=== PATIENT | male | born 1995 | race American Indian/Alaskan Native ===

== ENCOUNTER 2024-08-21 05:04 | Day surgery (SDC) | payer OTHER ==
[2024-08-16 14:36] VITALS: BMI 21.4
[2024-08-21] MEDS ORDERED: oxyCODONE HCL 5 MG TABLET PO PRN (10:28)
[2024-08-21] MEDS ORDERED: ONDANSETRON 4 MG/2 ML VIAL IVPUSH PRN (10:28)
[2024-08-21] MEDS ORDERED: LACTATED RINGERS SOLUTION 1,000 ML IV SCH (10:30)
[2024-08-21] MEDS ORDERED: BUPIVACAINE HCL/PF 0.5% (5MG/ML) 10 ML VIAL ONE (10:34)
[2024-08-21] MEDS ORDERED: PROPOFOL 20 ML ONE (10:35)
[2024-08-21] MEDS ORDERED: DEXAMETHASONE SOD PHOSPHATE 4 MG/1 ML VIAL ONE (10:36)
[2024-08-21] MEDS ORDERED: MIDAZOLAM HCL 2 MG/2 ML SINGLE DOSE VIAL ONE (10:36)
[2024-08-21] MEDS ORDERED: LIDOCAINE HCL/PF 2% SDV 5ML VIAL ONE (10:36)
[2024-08-21] MEDS: ceFAZolin SODIUM 1 GM VIAL IVPB ONE ×2 (11:58)
[2024-08-21] MEDS: BUPIVACAINE HCL/PF 0.5% (5 MG/ML) 30 ML VIAL IJ ONE ×2 (12:00)
[2024-08-21] MEDS ORDERED: ELECTROLYTE-148 SOLN 1,000 ML IV SCH (14:15)
[2024-08-21 15:23] VITALS: BP 125/84; PULSE 92; RESP 18; TEMP 97.8
== END 2024-08-21 14:00 | disposition home or self-care (01) ==
LOC: JASU-SURG 05:04
PROVIDERS: ATTEND Urology
PROC: 0VTTXZZ Resection of Prepuce, External Approach (ICD-10-PCS; principal; 2024-08-21 11:30)
DX: N47.1 Phimosis (principal)
CPT/HCPCS: 88304-TC